=== PATIENT | male | born 1985 | race Caucasian/White ===

== ENCOUNTER 2018-07-05 09:08 | Emergency (ER) | payer BC ==
[~2018-07-05] VITALS: Ht 162.6 cm; Wt 70.3 kg
[2018-07-05 09:10] VITALS: BP 125/80
--- NOTE | 2018-07-05 09:15 | NUR ---
Patient ambulated to bed 2 with family. RN evaluating patient at bedside.
--- NOTE | 2018-07-05 09:17 | NUR ---
c/o sharp R side ribcage pain x 1 day 10/17. per pt, he was wrestling with a friend last night and the pain started after that. no redness, swelling, obvious deformity noted. Denies n/v. SKIN IS INTACT, PINK/WARM/DRY; AAOX4, PERRL, WITH EVEN AND STEADY GAIT; LUNGS CLEAR BL, BREATHING UNLABORED; HR EVEN AND REGULAR, VSS; PATIENT POSITIONED FOR COMFORT; HOB ELEVATED; BEDRAILS UP X1; BED DOWN.
[2018-07-05] MEDS ORDERED: KETOROLAC 60 MG/2 ML VIAL IM ONE (09:55)
[2018-07-05] MEDS ORDERED: MORPHINE SULFATE 4 MG/ML SYR IM ONE (09:55)
[2018-07-05 10:55] VITALS: BP 120/74
--- NOTE | 2018-07-05 10:55 | NUR ---
Patient discharged with v/s stable. Written and verbal after care instructions given and explained. Patient alert, oriented and verbalized understanding of instructions. Ambulatory with steady gait. All questions addressed prior to discharge. ID band removed. Patient advised to follow up with PMD. Rx of TRAMADOL AND ANAPROX given. Patient educated on indication of medication including possible reaction and side effects. Opportunity to ask questions provided and answered.
== END 2018-07-05 10:55 | disposition home or self-care (01) ==
LOC: MED 09:08
DX: S20.211A Contusion of right front wall of thorax, initial encounter (principal); I10 Essential (primary) hypertension; W50.0XXA Accidental hit or strike by another person, initial encounter; Y93.72 Activity, wrestling; Y92.89 Other specified places as the place of occurrence of the external cause; Y99.8 Other external cause status
CPT/HCPCS: 71046; 96372; 99283; J1885; J2270; Q0092